=== PATIENT | male | born 1995 | race Hispanic/Latino ===

== ENCOUNTER 2018-05-24 16:51 | Emergency (ER) | payer SELFPAY | END 2018-05-24 18:10 | disposition home or self-care (01) | LOC: ERS 16:51 | DX: M67.431 Ganglion, right wrist (principal) | CPT/HCPCS: 99283 ==

== ENCOUNTER 2020-01-21 14:21 | Emergency (ER) | payer SELFPAY ==
[2020-01-21] MEDS ORDERED: Acetaminophen 500 MG TAB ONE (14:48)
[2020-01-21] MEDS ORDERED: Adacel (T-DAP) 0.5 ML SYRINGE ONE (14:48)
== END 2020-01-21 15:40 | disposition home or self-care (01) ==
LOC: ERS 14:21
DX: L03.115 Cellulitis of right lower limb (principal)
CPT/HCPCS: 90471; 90715